=== PATIENT | male | born 1960 | race African-American/Black ===

== ENCOUNTER 2019-08-09 07:46 | Emergency (ER) | payer OTHER ==
[~2019-08-09] VITALS: Ht 162.6 cm; Wt 62.0 kg
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
--- NOTE | 2019-08-09 10:02 | RAD ---
CT HEAD AND CERVICAL SPINE WO History: Trauma. Neck and head pain. Comparison: None. Technique: Noncontrast CT imaging was performed of the head and cervical spine. Coronal and sagittal reconstructions were performed. Exposure: One or more of the following individualized dose reduction techniques were utilized for this examination: 1. Automated exposure control 2. Adjustment of the mA and/or kV according to patient size 3. Use of iterative reconstruction technique. Findings: Head CT: No intracranial hemorrhage. No mass effect. No hydrocephalus. Mild brain parenchymal volume loss. Mild foci of decreased attenuation within the hemispheric white matter, most often due to chronic microvascular ischemia. Imaged orbits are unremarkable. Imaged paranasal sinuses and mastoid air cells are clear. No acute calvarial fracture. Chronic left medial orbital wall fracture. TMJ arthropathy. Cervical spine CT: Normal vertebral body height and alignment. No fracture. Mild to moderate multilevel degenerative disc changes most prominent C4-C5 and C5-C6. C4-C5 and C5-C6 posterior disc protrusion contributing to canal narrowing and probable cord flattening. Multilevel neuroforaminal narrowing. Soft tissues unremarkable. Impression: Head CT: 1. No acute intracranial abnormality. Cervical spine CT: 1. No acute fracture or subluxation of the cervical spine. 2. Multilevel cervical spondylosis. Electronically signed by: Dar Haro DO (08/09/2019 9:59 AM) [id number]
[2019-08-09 10:30] VITALS: BP 131/76
== END 2019-08-09 10:40 | disposition home or self-care (01) ==
LOC: ER 07:46
DX: M54.2 Cervicalgia (principal); R51 Headache; M47.812 Spondylosis without myelopathy or radiculopathy, cervical region; F17.200 Nicotine dependence, unspecified, uncomplicated; Z95.5 Presence of coronary angioplasty implant and graft
CPT/HCPCS: 70450; 72125; 99285-25